=== PATIENT | female | born 1985 | race Caucasian/White ===

== ENCOUNTER 2024-11-16 06:23 | Day surgery (SDC) | payer OTHER, SELFPAY | END 2024-11-16 11:01 | disposition home or self-care (01) | LOC: GI 06:23 | PROVIDERS: ATTENDING PHYSICIAN Student in an Organized Health Care Education/Training Program; FAMILY PHYSICIAN Nurse Practitioner | DX: D50.9 Iron deficiency anemia, unspecified (principal); R19.7 Diarrhea, unspecified; K63.5 Polyp of colon; R10.84 Generalized abdominal pain; R14.0 Abdominal distension (gaseous); K44.9 Diaphragmatic hernia without obstruction or gangrene | CPT/HCPCS: 45385; 45380; 43239; 88305; 88342 ==